=== PATIENT | male | born 1975 | race Caucasian/White ===

== ENCOUNTER 2021-07-21 11:27 | Day surgery (SDC) | payer BC, SELFPAY ==
[2021-07-21] VITALS (8 sets, daily range): BP systolic 101–116; BP diastolic 58–73; PULSE 51–69; RESP 12–20; TEMP 36.2–36.7; O2SAT 98–100; BMI 21.6
--- NOTE | 2021-07-21 11:53 | PM.PREOP ---
Pre-operative Note COVID-19 COVID-19 status: Result pending Result date/Date tested (Pos, Neg/Pending): 07/21/21 Interval Note History & Physical reviewed/Exam performed by Physician: Yes Changes to H&P: No ASA Class (for procedural sedation): I
--- NOTE | 2021-07-21 11:55 | PM.OP.COLON ---
Operative Date/Time/Diagnoses Date of procedure: 07/21/21 Procedure Notes SCOAP/Timeout: 12:59 p.m. Procedure in detail: ENDOSCOPIST: Effie Glover MD Sedation RN: Joselin Rivera RN Sedation start time: 1:00 p.m. Sedation end time: 1:20 p.m. PROCEDURE: Colonoscopy to 70 cm INDICATIONS: 1. Screening for colon cancer MEDICATION: Levsin 0.125 mg sublingual, incremental doses of Versed and fentanyl until appropriate level sedation achieved. ASA CLASS: 1 COMPLICATIONS: None. EXTENT OF PROCEDURE: Cecum. QUALITY OF PREP: Good with portions of liquid stool. PROCEDURE: Prior to insertion of the colonoscope, a digital rectal examination was accomplished with circumferential palpation of the distal rectal mucosa without significant findings being noted. The high-definition colonoscope was passed into the rectum in the usual fashion and advanced over to 70 cm without difficulty. At that point, colon was noted to be completely twisted and scope could not be advanced. Gentle air insufflation was attempted with obvious pain to the patient. Air was removed and patient was gently transitioned to supine and right lateral decubitus, back to supine and left lateral decubitus with no change in ability to intubate further. Colon remained twisted and patient could not tolerate any further advancement of the scope. Decision was made to abandon further attempts to reach the cecum and the scope was withdrawn. As the colonoscope was withdrawn, care was taken to expose and inspect the haustral folds and no abnormalities were seen. HEPATIC FLEXURE: Normal, no polyps, diverticula or other abnormalities. TRANSVERSE COLON: Normal, no polyps, diverticula or other abnormalities. DESCENDING COLON: Normal, no polyps, diverticula or other abnormalities. SIGMOID COLON: Normal, no polyps, diverticula or other abnormalities. RECTUM: Normal. J maneuver was produced. There was no significant perianal disease. The J maneuver was broken. The remainder of the rectum was inspected and there was no external hemorrhoid disease. The scope was withdrawn. IMPRESSION: 1. Incomplete colonoscopy to 70 cm PLAN: 1. Patient may consider CT colonography or repeat colonoscopy within 1 year. The possibility of a missed lesion including a malignancy has been discussed with the patient previously. Potential alarm symptoms have been discussed and should be reported immediately.
[2021-07-21 12:13] LABS: COVID19 -Nasal RAPID Negative (Negative)
[2021-07-21] MEDS: LACTATED RINGERS 1,000 ML 84 ML IV (12:23)
[2021-07-21] MEDS: HYOSCYAMINE 0.125 MG TABLET PO (12:28)
[2021-07-21] MEDS: MIDAZOLAM 5 MG/5 ML VIAL IV (13:14)
[2021-07-21] MEDS: fentaNYL 250 MCG/5 ML INJ IV (13:21)
== END 2021-07-21 14:27 | disposition home or self-care (01) ==
PROVIDERS: PCP Family Medicine; Referring Provider Student in an Organized Health Care Education/Training Program; Visit Provider Student in an Organized Health Care Education/Training Program
PROC: 0DJD8ZZ Inspection of Lower Intestinal Tract, Via Natural or Artificial Opening Endoscopic (ICD-10-PCS; CPT 45378; principal; 2021-07-21 13:00)
DX: Z12.11 Encounter for screening for malignant neoplasm of colon (principal); Z20.822 Contact with and (suspected) exposure to COVID-19; Z53.09 Procedure and treatment not carried out because of other contraindication
CPT/HCPCS: 45378; 87635; J2250; J3010